=== PATIENT | male | born 1945 | race African-American/Black ===

== ENCOUNTER 2018-06-10 12:57 | Inpatient (IN) | payer OTHER, MEDICAID ==
[~2018-06-10] VITALS: Ht 175.3 cm; Wt 102.3 kg
[2018-06-10 14:34] LABS: BASOPHILS % 0.7 % (0.0-2.0); HEMATOCRIT. 43.8 % (42.0-52.0); HEMOGLOBIN. 14.4 g/dL (14.0-18.0); LYMPHOCYTES % 35.7 % (20.0-50.0); MEAN CORPUSCULAR HEMOGLOBIN 28.5 pg (28.0-32.0); MEAN CORPUSCULAR VOLUME 86.4 fL (80.0-94.0); MEAN PLATELET VOLUME 8.6 fl (7.4-10.4); NEUTROPHILS % 39.6 % (40.0-76.0); PLATELET 325 x1000/uL (130-400); RED BLOOD CELL COUNT 5.06 mill/uL (4.7-6.1); RED CELL DISTRIBUTION WIDTH 14.1 % (11.6-14.6)
[2018-06-10 14:43] LABS: CHLORIDE 109 mEq/L (98-107)
[2018-06-10] MEDS ORDERED: ALBUTEROL (0.083%) 2.5MG/3ML NEB HHN STA (16:13)
[2018-06-10] MEDS ORDERED: IPRATROPIUM BROMIDE (0.02%) 0.5MG/2.5ML NEB HHN STA (16:13)
[2018-06-10] MEDS ORDERED: METHYLPREDNISOLONE SOD SUCC 125 MG/2 ML VIAL IV STA (16:13)
[2018-06-10] MEDS ORDERED: ASPIRIN 325MG EC TABLET PO ONE (16:15)
[2018-06-10] MEDS ORDERED: DIPHENHYDRAMINE 50MG/ML VIAL IV PRN (18:00)
[2018-06-10] MEDS ORDERED: ACETAMINOPHEN 325MG TABLET PO PRN (18:00)
[2018-06-10] MEDS ORDERED: MAGNESIUM/ALUMINUM HYDROXIDE/SIMETHICONE 30ML UDC PO PRN (18:00)
[2018-06-10] MEDS ORDERED: ONDANSETRON HCL 4MG/2ML INJ IV PRN (18:00)
[2018-06-10] MEDS ORDERED: DOCUSATE SODIUM 100MG CAPSULE PO PRN (18:00)
[2018-06-10] MEDS ORDERED: GUAIFENESIN 200MG/10ML SUGAR FREE UDC PO PRN (18:00)
[2018-06-10] MEDS ORDERED: TRAMADOL 50MG TABLET PO PRN (18:00)
[2018-06-10] MEDS ORDERED: IPRATROPIUM/ALBUTEROL 0.5-3(2.5)MG/3ML NEB INH PRN (18:00)
[2018-06-10] MEDS ORDERED: NITROGLYCERIN 0.4MG TABLET SL SL PRN (18:00)
[2018-06-10] MEDS ORDERED: NA PHOS,M-B/NA PHOS,DI-BA ENEMA 118ML PR PRN (18:00)
[2018-06-10] MEDS ORDERED: LEVOFLOXACIN 500MG PREMIX 100 ML IV SCH (18:15)
[2018-06-10] MEDS ORDERED: AMLODIPINE 10MG TABLET PO SCH (18:15)
[2018-06-10] MEDS: FAMOTIDINE 20MG TABLET PO SCH (20:57)
[2018-06-10] MEDS: LISINOPRIL 20MG TABLET PO SCH (20:57)
[2018-06-10] MEDS: CLONIDINE 0.1MG TABLET PO PRN (21:27)
[2018-06-10] MEDS ORDERED: ZOLPIDEM TARTRATE 5MG TABLET PO PRN (22:00)
[2018-06-10 22:45] VITALS: BP 165/93
[2018-06-10 23:17] VITALS: BP 165/93
[2018-06-11] VITALS: BP 147/87
[2018-06-11] MEDS: ENOXAPARIN 40MG/0.4ML SYR SUBCUT SCH ×2 (00:06→22:26)
[2018-06-11] MEDS: ASCORBIC ACID 500 MG TABLET PO SCH ×3 (00:07→22:25)
[2018-06-11] MEDS: METHYLPREDNISOLONE SOD SUCC 125 MG/2 ML VIAL IV SCH ×3 (00:07→18:41)
[2018-06-11] MEDS: IPRATROPIUM/ALBUTEROL 0.5-3(2.5)MG/3ML NEB HHN SCH ×4 (00:28→20:53)
[2018-06-11 01:04] LABS: CREATINE KINASE 365 IU/L (39-308)
[2018-06-11 01:05] LABS: CREATINE KINASE MB FRACTION 4.5 ng/mL (0.5-3.6)
[2018-06-11 04:00] VITALS: BP 155/87
[2018-06-11] MEDS: CLONIDINE 0.1MG TABLET PO PRN (05:28)
[2018-06-11] MEDS: GUAIFENESIN/DM 600MG/30MG ER TAB 12HR PO SCH ×2 (05:28→18:41)
[2018-06-11 07:45] LABS: *AMPHETAMINES SCREEN URINE NEGATIVE (NEGATIVE); *BARBITURATES SCREEN URINE NEGATIVE (NEGATIVE); *COCAINE SCREEN URINE PRESUMTIVE POSITIVE (NEGATIVE); METHADONE URINE SCREEN NEGATIVE (NEGATIVE)
[2018-06-11 07:46] LABS: *BENZODIAZEPINES SCREEN URINE NEGATIVE (NEGATIVE); CANNABINOID URINE SCREEN NEGATIVE (NEGATIVE); OPIATES URINE SCREEN PRESUMTIVE POSITIVE (NEGATIVE); PHENCYCLIDINE URINE SCREEN NEGATIVE (NEGATIVE)
[2018-06-11 08:00] VITALS: BP 165/94
[2018-06-11] MEDS: ZINC SULFATE 220 MG ( 50 ) CAPSULE PO SCH (08:46)
[2018-06-11] MEDS: ASPIRIN 325MG EC TABLET PO SCH (08:47)
[2018-06-11] MEDS: AMLODIPINE 10MG TABLET PO SCH (08:47)
[2018-06-11] MEDS: FAMOTIDINE 20MG TABLET PO SCH ×2 (08:47→22:25)
[2018-06-11] MEDS: LISINOPRIL 20MG TABLET PO SCH ×2 (08:48→22:36)
[2018-06-11 09:10] LABS: CREATINE KINASE 740 IU/L (39-308)
[2018-06-11 09:17] LABS: CREATINE KINASE MB FRACTION 10.2 ng/mL (0.5-3.6)
[2018-06-11 12:00] VITALS: BP 132/78
[2018-06-11 16:00] VITALS: BP 152/81
[2018-06-11] MEDS ORDERED: LEVOFLOXACIN 500MG PREMIX 100 ML IV SCH (18:00)
[2018-06-11 20:00] VITALS: BP 129/79
[2018-06-12] VITALS: BP 153/79
[2018-06-12] MEDS: IPRATROPIUM/ALBUTEROL 0.5-3(2.5)MG/3ML NEB HHN SCH ×6 (00:43→21:40)
[2018-06-12] MEDS: METHYLPREDNISOLONE SOD SUCC 125 MG/2 ML VIAL IV SCH ×3 (02:17→18:18)
[2018-06-12 04:00] VITALS: BP 148/75
[2018-06-12] MEDS: GUAIFENESIN/DM 600MG/30MG ER TAB 12HR PO SCH ×2 (06:10→18:18)
[2018-06-12 08:00] VITALS: BP 144/81
[2018-06-12] MEDS: ASPIRIN 325MG EC TABLET PO SCH (09:19)
[2018-06-12] MEDS: FAMOTIDINE 20MG TABLET PO SCH ×2 (09:19→21:21)
[2018-06-12] MEDS: ASCORBIC ACID 500 MG TABLET PO SCH ×2 (09:19→21:21)
[2018-06-12] MEDS: ZINC SULFATE 220 MG ( 50 ) CAPSULE PO SCH (09:19)
[2018-06-12] MEDS: AMLODIPINE 10MG TABLET PO SCH (09:19)
[2018-06-12] MEDS: LISINOPRIL 20MG TABLET PO SCH ×2 (09:19→21:21)
[2018-06-12 12:00] VITALS: BP 136/70
[2018-06-12] MEDS: LEVOFLOXACIN 500MG PREMIX 100 ML IV SCH (13:01)
[2018-06-12] MEDS: CLONIDINE 0.1MG TABLET PO PRN (13:01)
[2018-06-12 16:00] VITALS: BP 123/70
[2018-06-12 16:12] LABS: CHLORIDE 103 mEq/L (98-107)
[2018-06-12 20:00] VITALS: BP 138/76
[2018-06-12] MEDS: ENOXAPARIN 40MG/0.4ML SYR SUBCUT SCH (21:21)
[2018-06-13] VITALS (8 sets, daily range): BP systolic 132–170; BP diastolic 60–94
[2018-06-13] MEDS: IPRATROPIUM/ALBUTEROL 0.5-3(2.5)MG/3ML NEB HHN SCH ×7 (00:48→22:00)
[2018-06-13] MEDS: METHYLPREDNISOLONE SOD SUCC 125 MG/2 ML VIAL IV SCH ×3 (04:48→17:41)
[2018-06-13] MEDS: GUAIFENESIN/DM 600MG/30MG ER TAB 12HR PO SCH ×2 (05:00→17:41)
[2018-06-13] MEDS: LISINOPRIL 20MG TABLET PO SCH ×2 (08:27→20:10)
[2018-06-13] MEDS: ZINC SULFATE 220 MG ( 50 ) CAPSULE PO SCH (08:27)
[2018-06-13] MEDS: ASCORBIC ACID 500 MG TABLET PO SCH ×2 (08:28→20:09)
[2018-06-13] MEDS: FAMOTIDINE 20MG TABLET PO SCH ×2 (08:28→20:09)
[2018-06-13] MEDS: AMLODIPINE 10MG TABLET PO SCH (08:28)
[2018-06-13] MEDS: ASPIRIN 325MG EC TABLET PO SCH (08:28)
[2018-06-13] MEDS: LEVOFLOXACIN 500MG PREMIX 100 ML IV SCH (14:30)
[2018-06-13] MEDS: ENOXAPARIN 40MG/0.4ML SYR SUBCUT SCH (22:56)
[2018-06-14] VITALS: BP 149/79
[2018-06-14] MEDS: METHYLPREDNISOLONE SOD SUCC 125 MG/2 ML VIAL IV SCH ×3 (02:26→17:58)
[2018-06-14 04:00] VITALS: BP 142/75
[2018-06-14] MEDS: IPRATROPIUM/ALBUTEROL 0.5-3(2.5)MG/3ML NEB HHN SCH ×5 (05:06→19:50)
[2018-06-14] MEDS: GUAIFENESIN/DM 600MG/30MG ER TAB 12HR PO SCH ×2 (06:00→17:57)
[2018-06-14 08:00] VITALS: BP 153/85
[2018-06-14] MEDS: ASCORBIC ACID 500 MG TABLET PO SCH ×2 (09:17→21:07)
[2018-06-14] MEDS: ZINC SULFATE 220 MG ( 50 ) CAPSULE PO SCH (09:17)
[2018-06-14] MEDS: ASPIRIN 325MG EC TABLET PO SCH (09:17)
[2018-06-14] MEDS: LISINOPRIL 20MG TABLET PO SCH (09:17)
[2018-06-14] MEDS: AMLODIPINE 10MG TABLET PO SCH (09:18)
[2018-06-14] MEDS: FAMOTIDINE 20MG TABLET PO SCH ×2 (09:18→21:07)
[2018-06-14 12:00] VITALS: BP_SYST 146; BP_SYST 159; BP_SYST 160; BP_DIAS 87; BP_DIAS 89
[2018-06-14] MEDS: LEVOFLOXACIN 500MG TABLET PO SCH (12:34)
[2018-06-14 16:00] VITALS: BP 129/69
[2018-06-14] MEDS ORDERED: GUAIFENESIN/CODEINE 100-10MG/5ML UDC PO PRN (18:00)
[2018-06-14] MEDS ORDERED: MAGNESIUM/ALUMINUM HYDROXIDE/SIMETHICONE 30ML UDC PO PRN (18:15)
[2018-06-14 20:00] VITALS: BP 119/48
[2018-06-14] MEDS: SUCRALFATE 1 G/10 ML UDC PO SCH (21:07)
[2018-06-14] MEDS: GUAIFENESIN 600MG ER TABLET PO SCH (21:07)
[2018-06-14] MEDS: LISINOPRIL 40MG TABLET PO SCH (21:07)
[2018-06-14] MEDS: ENOXAPARIN 40MG/0.4ML SYR SUBCUT SCH (21:08)
[2018-06-15] VITALS: BP 138/63
[2018-06-15] MEDS: METHYLPREDNISOLONE SOD SUCC 125 MG/2 ML VIAL IV SCH ×2 (00:59→09:46)
[2018-06-15] MEDS: IPRATROPIUM/ALBUTEROL 0.5-3(2.5)MG/3ML NEB HHN SCH ×5 (01:02→14:40)
[2018-06-15 04:00] VITALS: BP 136/63
[2018-06-15] MEDS: SUCRALFATE 1 G/10 ML UDC PO SCH ×3 (05:38→16:45)
[2018-06-15] MEDS: GUAIFENESIN/DM 600MG/30MG ER TAB 12HR PO SCH (05:38)
[2018-06-15 07:16] LABS: BASOPHILS % 0.4 % (0.0-2.0); HEMATOCRIT. 45.8 % (42.0-52.0); HEMOGLOBIN. 14.9 g/dL (14.0-18.0); LYMPHOCYTES % 7.9 % (20.0-50.0); MEAN CORPUSCULAR HEMOGLOBIN 28.4 pg (28.0-32.0); MEAN CORPUSCULAR VOLUME 87.4 fL (80.0-94.0); MEAN PLATELET VOLUME 10.1 fl (7.4-10.4); MONOCYTES % 5.5 % (2.0-8.0); NEUTROPHILS % 86.2 % (40.0-76.0); PLATELET 312 x1000/uL (130-400); RED BLOOD CELL COUNT 5.25 mill/uL (4.7-6.1); RED CELL DISTRIBUTION WIDTH 14.5 % (11.6-14.6)
[2018-06-15 07:37] LABS: CHLORIDE 105 mEq/L (98-107)
[2018-06-15 08:00] VITALS: BP 124/67
[2018-06-15] MEDS: LISINOPRIL 40MG TABLET PO SCH (09:45)
[2018-06-15] MEDS: ASCORBIC ACID 500 MG TABLET PO SCH (09:45)
[2018-06-15] MEDS: ASPIRIN 325MG EC TABLET PO SCH (09:45)
[2018-06-15] MEDS: GUAIFENESIN 600MG ER TABLET PO SCH (09:46)
[2018-06-15] MEDS: ZINC SULFATE 220 MG ( 50 ) CAPSULE PO SCH (09:46)
[2018-06-15] MEDS: FAMOTIDINE 20MG TABLET PO SCH (09:46)
[2018-06-15] MEDS: AMLODIPINE 10MG TABLET PO SCH (09:46)
[2018-06-15] MEDS: LEVOFLOXACIN 500MG TABLET PO SCH (11:15)
[2018-06-15 12:00] VITALS: BP 160/74
[2018-06-15 16:00] VITALS: BP 123/56
[2018-06-15 17:02] VITALS: BP 123/56
[2018-06-15] MEDS ORDERED: ENOXAPARIN 30MG/0.3ML SYR SUBCUT SCH (18:00)
== END 2018-06-15 17:40 | disposition home or self-care (01) | DRG 202 ==
LOC: ER 13:19 → 5WST 17:18 → EDBEDREQ 17:37 → SUPCPDRO 17:52 → ENRESERV 19:49
PROVIDERS: ADMIT Internal Medicine; ATTEND Internal Medicine
DX: J45.901 Unspecified asthma with (acute) exacerbation (principal); J44.1 Chronic obstructive pulmonary disease with (acute) exacerbation; M62.82 Rhabdomyolysis; I42.1 Obstructive hypertrophic cardiomyopathy; M94.0 Chondrocostal junction syndrome [Tietze]; F17.210 Nicotine dependence, cigarettes, uncomplicated; I10 Essential (primary) hypertension; K20.9 Esophagitis, unspecified; I44.0 Atrioventricular block, first degree; G90.8 Other disorders of autonomic nervous system; F14.10 Cocaine abuse, uncomplicated; E11.9 Type 2 diabetes mellitus without complications; R74.0 Nonspecific elevation of levels of transaminase and lactic acid dehydrogenase [LDH]; Z71.6 Tobacco abuse counseling
CPT/HCPCS: 36415; 71045; 80048; 80061; 80305; 82550; 82553; 82962; 83036; 83735; 83880; 84484; 93005; 93306; 93970; 94640; 96374; 96375; 99285; J1650; J1956; J2405; J2930; J7611; J7620

== ENCOUNTER 2018-08-21 12:20 | Emergency (ER) | payer OTHER, MEDICAID ==
[~2018-08-21] VITALS: Ht 175.3 cm; Wt 95.0 kg
[2018-08-21] MEDS ORDERED: ALBUTEROL (0.083%) 2.5MG/3ML NEB HHN STA (13:04)
[2018-08-21] MEDS ORDERED: METHYLPREDNISOLONE SOD SUCC 125 MG/2 ML VIAL IV STA (13:04)
[2018-08-21] MEDS ORDERED: IPRATROPIUM BROMIDE (0.02%) 0.5MG/2.5ML NEB HHN STA (13:04)
[2018-08-21 13:45] LABS: CHLORIDE 110 mEq/L (98-107)
[2018-08-21 13:51] LABS: HEMOGLOBIN. 13.7 g/dL (14.0-18.0); MEAN CORPUSCULAR HEMOGLOBIN 28.4 pg (28.0-32.0); MEAN CORPUSCULAR VOLUME 87.2 fL (80.0-94.0); MEAN PLATELET VOLUME 8.4 fl (7.4-10.4); PLATELET 312 x1000/uL (130-400); RED BLOOD CELL COUNT 4.81 mill/uL (4.7-6.1); RED CELL DISTRIBUTION WIDTH 14.8 % (11.6-14.6)
[2018-08-21 14:45] LABS: PLATELET ESTIMATE NORMAL
[2018-08-21] MEDS ORDERED: CLONIDINE 0.1MG TABLET PO NR (17:45)
[2018-08-21] MEDS ORDERED: IPRATROPIUM BROMIDE (0.02%) 0.5MG/2.5ML NEB HHN NR (20:00)
[2018-08-21] MEDS ORDERED: ALBUTEROL (0.083%) 2.5MG/3ML NEB HHN NR (20:00)
[2018-08-21 21:30] VITALS: BP 141/82
== END 2018-08-21 20:23 | disposition short-term general hospital (02) ==
LOC: ER 12:20 → EDBEDREQ 19:00 → ER 20:23 → ENRESERV 20:29 → CANBEDREQ 22:40
DX: J44.1 Chronic obstructive pulmonary disease with (acute) exacerbation (principal); R06.03 Acute respiratory distress; I10 Essential (primary) hypertension; D68.59 Other primary thrombophilia; R74.0 Nonspecific elevation of levels of transaminase and lactic acid dehydrogenase [LDH]; Z72.89 Other problems related to lifestyle; Z87.891 Personal history of nicotine dependence
CPT/HCPCS: 36415; 71045; 80053; 83880; 84484; 85025; 93005; 94640; 96374; 99291; J2930; J7611